=== PATIENT | female | born 1965 | race Caucasian/White ===

== ENCOUNTER 2019-08-06 08:02 | Emergency (ER) | payer OTHER, SELFPAY ==
[2019-08-06 08:27] VITALS: BP 100/68; PULSE 91; RESP 16; TEMP 37.3; O2SAT 98
--- NOTE | 2019-08-06 08:42 | ED.GENADULT ---
HPI - General Adult General Chief complaint: Extremity Injury, Upper Stated complaint: Swollen/painful left index finger Time Seen by Provider: 08/06/19 08:42 Source: patient and RN notes reviewed Mode of arrival: ambulatory Limitations: no limitations History of Present Illness HPI narrative: 54-year-old female presents with complaints of redness, warmth, tenderness, and swelling to LT anterior 2nd (index) finger for 2 days. Shannon says she has been using a pin to explore finger for any foreign items. Last probed finger with a needle this a.m. Denies injuries or trauma to hand or fingers. Denies radiation of tenderness, redness, or swelling. Exacerbating factors consists of palpation of finger. RT hand dominant. 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 Denies hand, wrist, or arm pain. Denies open areas or drainage. Denies fever or chills. Denies nausea, vomiting, and abdominal pain. Shannon denies being , postmenopausal. Some parts of this dictation were generated by voice recognition software and may contain typographical and/or grammatical inaccuracies. Related Data Home Medications Medication Instructions Recorded Confirmed levothyroxine [Synthroid] 75 mcg DAILY 08/06/19 08/06/19 pantoprazole 40 mg PO DAILY 08/06/19 08/06/19 Allergies Allergy/AdvReac Type Severity Reaction Status Date / Time dexamethasone Allergy Unknown INFECTION Verified 08/06/19 08:38 GOT WORSE tetracycline Allergy Unknown HIVES Verified 08/06/19 08:38 tobramycin Allergy Unknown INFECTION Verified 08/06/19 08:38 GOT WORSE Review of Systems Review of Systems: Narrative: CONSTITUTIONAL: Denies fever, chills, sweats. EYES: Denies visual changes, redness, discharge. ENT: Denies rhinorrhea, congestion, sore throat, otalgia. CARDIOVASCULAR: Denies chest pain, palpitations, edema. RESPIRATORY: Denies dyspnea, wheezing, cough. GASTROINTESTINAL: Denies abdominal pain, nausea, vomiting, diarrhea. GENITOURINARY: Denies dysuria, hematuria, abnormal discharge. SKIN: Complains of redness, swelling, warmth, and tenderness to LT anterior 2nd (index) finger. MUSCULOSKELETAL: Denies acute back pain, joint pain, or myalgia. NEUROLOGIC: Denies numbness or focal weakness. PSYCHIATRIC: Denies anxiety or depression. All systems reviewed & are unremarkable except as noted in HPI and below. PMFSH Past Medical History Medical History (Updated 08/07/19 @ 00:00 by Kelley Hooker) History of gastroesophageal reflux (GERD) Hypothyroidism , ectopic Surgical History Surgical History (Updated 08/06/19 @ 08:57 by DAX Jackson) H/O partial thyroidectomy History of cholecystectomy History of mandibular surgery X2 Hx of appendectomy Hx of elbow surgery Bilateral Family History Family History (Updated 08/06/19 @ 08:58 by DAX Jackson) Grandparent Diabetes mellitus Other Diabetes mellitus Social History Social History (Updated 08/06/19 @ 09:00 by DAX Jackson) Smoking status: Never smoker Second hand tobacco smoke exposure: No Alcohol intake: current Alcohol use details: Occasionally Living arrangements: with family Additional living arrangements comments: Occupation/Education: occupation 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 There is no relevant family history pertinent to the presenting complaint. Exam Narrative: Exam Narrative: GENERAL: This is a well-nourished, well-developed patient, in no apparent distress. HEAD: normocephalic, atraumatic. EYES: PERRL. Sclera clear/white. Vision is grossly intact. CARDIOVASCULAR: Regular rate and rhythm without murmurs, gallops, or rubs. RESPIRATORY: Clear to auscultation. Breath sounds equal bilaterally. No wheezes, rales, or rhonchi. GASTROI
== END 2019-08-06 09:00 | disposition home or self-care (01) ==
PROVIDERS: Emergency Provider Nurse Practitioner Family; PCP Family Medicine
DX: L03.012 Cellulitis of left finger (principal); K21.9 Gastro-esophageal reflux disease without esophagitis; E03.9 Hypothyroidism, unspecified
CPT/HCPCS: 99203; G0463

== ENCOUNTER 2021-07-06 13:19 | Emergency (ER) | payer OTHER, SELFPAY ==
--- NOTE | 2021-07-06 13:23 | ED.WOUNDLAC ---
HPI - Wound/Laceration General Chief Complaint: Skin/Abscess/Foreign Body Stated Complaint: dog bite Time Seen by Provider: 07/06/21 13:58 Source: patient and RN notes reviewed Mode of arrival: ambulatory Limitations: no limitations History of Present Illness HPI narrative: 56-year-old female presents concern for dog bite to her right hand. Reports 6:00 this morning her dog bit her on the hand. Reports she has small abrasions that are not bleeding, however the dorsal aspect of the hand continues to swell and his pain full. She denies any decreased strength in the hand, reports difficulty making a fist. She denies drainage, redness, warmth. She is up-to-date on her vaccinations Related Data Home Medications Medication Instructions Recorded Confirmed levothyroxine [Synthroid] 75 mcg DAILY 08/06/19 08/06/19 esomeprazole magnesium 20 mg PO DAILY 07/06/21 07/06/21 hydroxychloroquine 200 mg PO DAILY 07/06/21 07/06/21 Allergies Allergy/AdvReac Type Severity Reaction Status Date / Time dexamethasone Allergy Unknown INFECTION Verified 08/06/19 08:38 GOT WORSE tetracycline Allergy Unknown HIVES Verified 08/06/19 08:38 tobramycin Allergy Unknown INFECTION Verified 08/06/19 08:38 GOT WORSE Sulfa (Sulfonamide Allergy Unknown Verified 07/06/21 13:48 Antibiotics) Review of Systems Review of Systems: CONSTITUTIONAL: Denies malaise, chills, sweats, or fever. SKIN: Reports scabbed abrasions to the dorsal right hand. Reports dorsal swelling, bruising MUSCULOSKELETAL: Reports right hand pain NEUROLOGIC: Denies numbness, weakness All systems reviewed & are unremarkable except as noted in HPI and below PMFSH Past Medical History Medical History (Updated 07/06/21 @ 14:04 by Nadiya Roberts NP) History of gastroesophageal reflux (GERD) Hypothyroidism , ectopic Surgical History Surgical History (Updated 08/06/19 @ 08:57 by DAX Jackson) H/O partial thyroidectomy History of cholecystectomy History of mandibular surgery X2 Hx of appendectomy Hx of elbow surgery Bilateral Family History Family History (Updated 08/06/19 @ 08:58 by DAX Jackson) Grandparent Diabetes mellitus Other Diabetes mellitus Social History Social History (Updated 02/12/20 @ 09:00 by BRICE Jackson Smoking status: Never smoker Second hand tobacco smoke exposure: No Alcohol intake: current Alcohol use details: Occasionally Additional living arrangements comments: 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 There is no relevant family history pertinent to the presenting complaint Exam Narrative: GENERAL: Well-appearing, well-nourished, and in no acute distress. HEAD: Normocephalic EYES: PERRLA, conjunctivae clear NECK: Supple. CHEST: Speaks in full sentences. No respiratory distress. HEART: Regular rate and rhythm. Normal and equal peripheral pulses. EXTREMITIES: Right hand and digits of hand have normal strength and sensation. 5/5 strength with digit flexion, extension. Range of motion normal. Dorsal edema and ecchymosis noted consistent with hematoma. No skeletal tenderness. Normal digital cascade with flexion of fingers, median, ulnar and radial nerve intact. Normal sensation of each side of finger. Can perform 'okay' sign, 'cross over finger test of index and middle fingers'. No scissoring. Normal thumb opposition. Good capillary refill and radial pulse. Distal capillary refill less than 3 seconds. Patient is right/left hand dominant SKIN: Warn, dry, intact, pink. No rash, erythema, warmth, fluctuation NEURO: Alert and oriented x3. PSYCH: Normal mood and affect Course Course Emergency Course: Patient is aware of diagnosis, understands and agrees to treatment plan. Anticip
[2021-07-06 13:40] VITALS: BP 101/69; PULSE 65; RESP 18; TEMP 36.9; O2SAT 99
== END 2021-07-06 14:08 | disposition home or self-care (01) ==
PROVIDERS: Emergency Provider Nurse Practitioner; PCP Family Medicine
DX: S60.221A Contusion of right hand, initial encounter (principal); W54.0XXA Bitten by dog, initial encounter; K21.9 Gastro-esophageal reflux disease without esophagitis; E03.9 Hypothyroidism, unspecified
CPT/HCPCS: 99212; G0463